=== PATIENT | female | born 1990 | race Caucasian/White ===

== ENCOUNTER → 2022-01-20 09:28 | Outpatient (CLI) | payer OTHER, SELFPAY ==
[2022-01-20 09:56] LABS: COVID19 -Nasal RAPID Negative (Negative)
== END ==
PROVIDERS: Visit Provider Student in an Organized Health Care Education/Training Program
DX: Z20.822 Contact with and (suspected) exposure to COVID-19 (principal)
CPT/HCPCS: 87635

== ENCOUNTER 2022-07-30 08:12 | Day surgery (SDC) | payer OTHER, SELFPAY ==
[2022-07-30 08:22] VITALS: BMI 28.3
[2022-07-30 08:42] VITALS: BP 127/80; PULSE 69; RESP 14; TEMP 36.9; O2SAT 99
--- NOTE | 2022-07-30 09:15 | P.HP_ITS ---
History of Present Illness History of Present Illness Date Patient Seen: 07/30/22 Time Patient Seen: 09:15 [address]: [facility] [place] Narrative: Chantel is here for her colonoscopy. She has had some improvement with bowel movements. She still is straining somewhat but she doesn't have as much pain as she used to. Patient History Medical History Anxiety (~2014) Headache (~2014) Hemorrhoid (~2021) Migraines (~2014) Surgical History Anesthesia History of lymph node biopsy (~2001) [place] teeth removed (~2012) Family & Social History Family History Grandfather Diabetes mellitus History of heart disease Grandmother Diabetes mellitus Social History: household members spouse Tobacco & Substance use: Smoking Status Never smoker alcohol intake current alcohol intake frequency holiday/special occasion Substance Use Type does not use Meds Home Medications and Allergies Home Medications Medication Instructions Recorded Confirmed Type sodium sul 1.479 gram-potas ch See Rx Instructions PO PER PKG DIR 06/17/22 07/29/22 Rx 0.188 gram-magnes sul 0.225 gram #24 tabs tablet (Sutab) norethindrone (contraceptive) 0.35 0.35 mg PO DAILY #84 tabs 07/29/22 07/30/22 Rx mg tablet Allergies Allergy/AdvReac Type Severity Reaction Status Date / Time No Known Drug Allergies Allergy Unverified 06/17/22 10:56 Exam Vital Signs (past 8 hours): - 07/30/22 08:42 Temperature 98.4 F Pulse Rate 69 Respiratory Rate 14 Blood Pressure 127/80 Pulse Oximetry 99 Oxygen Delivery Method Room Air Oxygen Delivery Method Room Air Const General: healthy appearing Assessment & Plan Assessment and plan (1) Family history of colon cancer: Status: Acute (2) Rectal bleeding: Status: Acute Plan 32 year old woman here for colonoscopy due to rectal bleeding and family history of colon cancer. Time Spent With Patient Critical Care time: I spent a total of [] minutes of critical care time on this patient's care today; this time is exclusive of procedural time.
--- NOTE | 2022-07-30 09:41 | PM.OP.COLON ---
Operative Date/Time/Diagnoses Date of procedure: 07/30/22 Time of procedure: 10:20 Pre-op diagnosis: Family history of colon cancer Post-op diagnosis: same Procedure & Clinicians Study performed: Colonoscopy Same procedure as scheduled: Yes Surgeon: Timmy Villalta Procedure Notes Procedure in detail: Surgeon: Timmy Villalta MD Anesthesia: Paris Mcgee CRNA Procedure: The patient was brought to the endoscopy suite, placed in left lateral decubitus position. The patient was connected to monitoring devices. A time-out was performed. Sedation was administered. Once the patient was adequately sedated, a digital rectal exam was performed and was normal. The scope was then inserted and advanced to the cecum where the appendiceal orifice was identified and photographed. The scope was then slowly withdrawn over greater than 6 minutes. The mucosa was thoroughly inspected. No mucosal lesions were identified. There was a likely lipoma in the proximal colon. The scope was retroflexed in the rectum. No abnormalities were seen. The scope was straightened and removed. The patient was awakened and brought to recovery. Scope withdrawal time: 7 minutes Sedation time: 19 minutes EBL: 0 Findings: Normal colon Post-procedure Disposition: PACU
[2022-07-30 10:23] VITALS: BP 112/81; PULSE 85; RESP 16; TEMP 36.3; O2SAT 98
[2022-07-30 10:28] VITALS: BP 113/82; PULSE 75; RESP 21; TEMP 36.3; O2SAT 94
[2022-07-30 10:37] VITALS: BP 132/83; PULSE 70; RESP 14; TEMP 36.4; O2SAT 98
--- NOTE | 2022-07-30 10:40 | SUR.PHASEII ---
Report received, patient drowsy, call light within reach.
== END 2022-07-30 11:06 | disposition home or self-care (01) ==
PROVIDERS: PCP Nurse Practitioner; Referring Provider Surgery; Visit Provider Surgery
PROC: 0DJD8ZZ Inspection of Lower Intestinal Tract, Via Natural or Artificial Opening Endoscopic (ICD-10-PCS; CPT 45378; principal; 2022-07-30 09:15)
DX: Z12.11 Encounter for screening for malignant neoplasm of colon (principal); Z80.0 Family history of malignant neoplasm of digestive organs
CPT/HCPCS: 45378; 81025; J2704

== ENCOUNTER → 2022-12-31 11:16 | Outpatient (CLI) | payer OTHER, SELFPAY ==
[2022-12-31 12:59] LABS: HCG Quantitative /Beta subunit < 2.4 mIU/mL
== END ==
PROVIDERS: PCP Nurse Practitioner; Referring Provider Nurse Practitioner; Visit Provider Nurse Practitioner
DX: N92.6 Irregular menstruation, unspecified (principal)
CPT/HCPCS: 36415; 84702

== ENCOUNTER → 2023-01-17 14:27 | Outpatient (CLI) | payer OTHER, SELFPAY ==
--- NOTE | 2023-01-17 14:29 | DI.MRI.S_ITS ---
PROCEDURE: MR LUMBAR SPINE WO CON INDICATIONS: low back pain with sciatica TECHNIQUE: Noncontrast sagittal T1 spin echo and T2 fast echo, sagittal STIR, and T2 fast spin echo through the lumbar spine. In cases with scoliosis, additional coronal T2 fast spin echo may be performed. COMPARISON: None. FINDINGS: Image quality: Excellent. Alignment and Curvature: There is normal bony alignment. Bone Marrow: Degenerative endplate changes at L5-S1. No acute vertebral body compression fractures. Spinal Cord: Conus medullaris terminates at the L1 level. Visualized cord demonstrates normal signal and size. Paraspinous Soft Tissues: No paravertebral masses. T12-L1: Normal appearance. L1-L2: Normal appearance. L2-L3: Normal appearance. L3-L4: Normal appearance. L4-L5: Disc desiccation and small posterior central disc protrusion. Facet arthropathy. No central canal or neural foraminal stenosis. Mild narrowing of the lateral recesses with abutment of the descending L5 nerve roots. L5-S1: Disc desiccation and height loss. Right paracentral disc protrusion. No central canal stenosis. No neural foraminal stenosis. IMPRESSION: Degenerative disc disease at L4-5 and L5-S1 as described above without significant central canal or neural foraminal stenosis. Mild narrowing of the lateral recesses at L4-5 with abutment of the descending L5 nerve roots. Dictated by: Deejay Laureano M.D. on 01/18/2023 at 9:33 Approved by: Deejay Laureano M.D. on 01/18/2023 at 9:37
== END ==
PROVIDERS: PCP Nurse Practitioner; Referring Provider Nurse Practitioner; Visit Provider Nurse Practitioner
DX: M51.16 Intervertebral disc disorders with radiculopathy, lumbar region (principal); M51.17 Intervertebral disc disorders with radiculopathy, lumbosacral region; M48.061 Spinal stenosis, lumbar region without neurogenic claudication; M54.50 Low back pain, unspecified
CPT/HCPCS: 72148

== ENCOUNTER → 2023-07-15 07:21 | Outpatient (CLI) | payer OTHER, SELFPAY | PROVIDERS: PCP Nurse Practitioner; Visit Provider Physician Assistant Surgical | DX: J02.9 Acute pharyngitis, unspecified (principal) | CPT/HCPCS: 87070 ==

== ENCOUNTER → 2023-09-13 07:04 | Outpatient (CLI) | payer OTHER, SELFPAY ==
[2023-09-13 07:56] LABS: Add Manual Diff / Slide Review NO; Basophils Absolute Auto 0 /uL (0-100); Basophils Percent Auto 0.5 % (0-2); Eosinophils Absolute Auto 100 /uL (0-450); Hematocrit 38.8 % (36-46); Hemoglobin 13.1 g/dL (12.0-16.0); Lymphocytes Absolute Auto 2400 /uL (1100-4500); Lymphocytes Percent Auto 47.6 % (25-40); Mean Corpuscular HGB Conc 33.9 % (30-36); Mean Corpuscular Hemoglobin 31.1 PG (26-34); Monocytes Absolute Auto 600 /uL (0-900); Monocytes Percent Auto 11.4 % (3-14); Neutrophils Absolute Auto 1900 /uL (1500-7000); Neutrophils Percent Auto 38.5 % (50-75); Platelet Count 320 X10^3/uL (150-400); Red Blood Cell Count 4.22 X10^6/uL (4.0-5.2); Red Cell Distribution Width 12.5 % (11.6-14.8); White Blood Cell Count 5.1 X10^3/uL (4.5-11.0)
[2023-09-13 08:15] LABS: Alanine Aminotransferase 17 IU/L (<35); Albumin 4.3 g/dL (3.5-5.0); Albumin Globulin Ratio 1.3 (1.0-2.8); Alkaline Phosphatase 49 U/L (38-126); Aspartate Aminotransferase 20 IU/L (14-36); Bilirubin Total 0.5 mg/dL (0.2-1.3); Blood Urea Nitrogen 13 mg/dL (7-17); Calcium 9.6 mg/dL (8.4-10.2); Carbon Dioxide 26 mmol/L (22-32); Chloride 105 mmol/L (98-107); Cholesterol 167 mg/dL (140-199); Estimated Glomerular Filt Rate > 60 mL/min (>60); Globulin 3.2 g/dL (1.7-4.1); Glucose 90 mg/dL (70-100); HDL Cholesterol 47 mg/dL (40-60); HEMOLYSIS < 15 (0-50); LDL Cholesterol Calculated 105 mg/dL (<100); Potassium 4.4 mmol/L (3.4-5.1); Sodium 138 mmol/L (137-145); Total Protein 7.5 g/dL (6.3-8.2); Triglycerides 74 mg/dL (35-150)
[2023-09-13 08:33] LABS: Free T3, Triiodothyronine Free 3.73 pg/mL (2.77-5.27); Free T4, Direct Thyroxine 0.99 ng/dL (0.78-2.19)
[2023-09-13 08:46] LABS: Thyroid Stimulating Hormone 2.22 uIU/mL (0.47-4.68)
[2023-09-13 09:03] LABS: HIV 1 & 2 Ab/Ag 4th Gen Combo NEGATIVE (NEGATIVE); Hep C Virus Ab w/Reflex Quant NEGATIVE s/c (NEGATIVE)
[2023-09-13 09:14] LABS: Creatinine Urine Random 95.8 mg/dL
[2023-09-13 09:19] LABS: Microalbumin Urine Random < 0.6 mg/dL (0-1.6)
== END ==
LOC: LAB 07:05
PROVIDERS: PCP Nurse Practitioner; Referring Provider Nurse Practitioner; Visit Provider Nurse Practitioner
DX: Z00.00 Encounter for general adult medical examination without abnormal findings (principal); Z11.4 Encounter for screening for human immunodeficiency virus [HIV]; Z11.59 Encounter for screening for other viral diseases
CPT/HCPCS: 36415; 80053; 80061; 82043; 82570; 84439; 84443; 84481; 85025; 86803; 87389

== ENCOUNTER → 2024-07-12 11:53 | Outpatient (CLI) | payer OTHER, SELFPAY | PROVIDERS: PCP Family Medicine; Visit Provider Registered Nurse | DX: J02.9 Acute pharyngitis, unspecified (principal) | CPT/HCPCS: 87070 ==